=== PATIENT | female | born 1970 | race Caucasian/White ===

== ENCOUNTER 2021-05-23 11:03 | Inpatient (IN) | payer SELFPAY ==
[~2021-05-23] VITALS: Ht 163.8 cm; Wt 82.8 kg
[2021-05-23] MEDS ORDERED: PANTOPRAZOLE 80 MG in SODIUM CHLORIDE 0.9% 100 ML IV SCH (11:30)
[2021-05-23] MEDS ORDERED: OCTREOTIDE 100MCG/ML, 1ML (0.1MG/ML) IV ONE (11:30)
[2021-05-23] MEDS ORDERED: SODIUM CHLORIDE FLUSH 10ML SYR IVF ONE (11:30)
[2021-05-23] MEDS ORDERED: SODIUM CHLORIDE 0.9% 1,000 ML IV ONE (11:30)
[2021-05-23] MEDS ORDERED: OCTREOTIDE 500 MCG in SODIUM CHLORIDE 0.9% 99 ML IV PRN (11:30)
--- NOTE | 2021-05-23 11:30 | NUR ---
pt has c/o vomiting dark blood. was transfered from [facility] by [facility]. pt a/o x4 with unlabored breathing. PT HAS HX OF ETOH ABUSE AND HAS DENIED HX OF SZ. PT SHOWING NO SIGNS OF WITHDRAWL AT THIS TIME. PT LAST DINK [address] [facility] [place].
--- NOTE | 2021-05-23 11:31 | NUR ---
PT FRIEND STEFANO AND JOAQUIN PHONE # [phone]
[2021-05-23] MEDS ORDERED: LORazepam 2 MG/ML, 1ML IVPush PRN ×2 (12:00→15:30)
[2021-05-23] MEDS ORDERED: ONDANSETRON 2MG/ML, 2ML IVPush ONE (12:00)
[2021-05-23] MEDS ORDERED: OCTREOTIDE 100MCG/ML, 1ML (0.1MG/ML) ONE (12:08)
[2021-05-23] MEDS ORDERED: ONDANSETRON 2MG/ML, 2ML ONE (12:08)
[2021-05-23] MEDS ORDERED: LORazepam 2 MG/ML, 1ML ONE ×2 (12:09→14:58)
[2021-05-23 12:20] LABS: MEAN CORPUSCULAR HEMOGLOBIN 17.9 pg (27.0-34.8); MEAN PLATELET VOLUME 8.4 fL (7.4-10.4); PLATELET COUNT 286 x10^3/uL (130-400); RED BLOOD COUNT 4.52 x10^6/uL (3.82-5.3)
[2021-05-23 12:32] LABS: ALBUMIN 3.7 g/dL (3.4-5.0); ANION GAP 17 mmol/L (5-15); CALCIUM 9.1 mg/dL (8.5-10.1); CHLORIDE 102 mmol/L (98-107)
[2021-05-23 12:35] LABS: ALANINE AMINOTRANSFERASE 78 U/L (12-78); ALKALINE PHOSPHATASE 96 U/L (45-117); BILIRUBIN,TOTAL 1.4 mg/dL (0.2-1.0); CREATININE 0.92 mg/dL (0.55-1.02); TOTAL PROTEIN 8.4 g/dL (6.4-8.2)
[2021-05-23 12:51] LABS: MEAN CORPUSCULAR HGB CONC 28.7 g/dL (32.4-35.8)
[2021-05-23 12:53] LABS: LYMPH#(MANUAL) 0.32 x10^3/uL (1-3.4); LYMPHS% (MANUAL) 2 % (22-44); MONOS#(MANUAL) 0.49 x10^3/uL (0.3-2.7); MONOS% (MANUAL) 3 % (2-9); SEG#(MANUAL) 15.39 x10^3/uL (1.8-6.8); SEGS% (MANUAL) 95 % (42-75)
[2021-05-23 12:54] LABS: ANISOCYTOSIS 2+; HYPOCHROMIA 2+; MICROCYTOSIS 3+
[2021-05-23 12:57] LABS: <PLATELET ESTIMATE> ADEQUATE; <PLT MORPHOLOGY> NORMAL PLT MORPH; POLYCHROMASIA 1+
--- NOTE | 2021-05-23 14:00 | NUR ---
REPORT TO ENDO RN
[2021-05-23] MEDS ORDERED: CHLORHEXIDINE 15 ML UDC ONE (14:02)
--- NOTE | 2021-05-23 14:22 | NUR ---
ENDO TRANSPORTED PT TO THEIR UNIT
[2021-05-23] MEDS ORDERED: CHLORHEXIDINE 15 ML UDC PO ONE (14:30)
[2021-05-23] MEDS ORDERED: SODIUM CHLORIDE FLUSH 10ML SYR IVF PRN (14:30)
[2021-05-23] MEDS: PANTOPRAZOLE 80 MG in SODIUM CHLORIDE 0.9% 100 ML IV SCH ×2 (15:00→23:50)
[2021-05-23] MEDS ORDERED: ONDANSETRON 2MG/ML, 2ML IV PRN (15:00)
[2021-05-23] MEDS ORDERED: POLYETHYLENE GLYCOL 17 GM PACKET PO PRN (15:00)
[2021-05-23] MEDS ORDERED: GABAPENTIN 300 MG CAPSULE PO PRN (15:00)
[2021-05-23] MEDS ORDERED: BISACODYL 10 MG SUPP PR PRN (15:00)
[2021-05-23] MEDS ORDERED: DOCUSATE 100 MG CAPSULE PO PRN (15:00)
[2021-05-23] MEDS ORDERED: morphine SULFATE 10 MG/ML, 1ML IVPush PRN (15:00)
[2021-05-23] MEDS ORDERED: FENTANYL PF 100 MCG/2ML IV PRN (15:30)
[2021-05-23] MEDS ORDERED: LORazepam 2 MG/ML, 1ML IV PRN ×5 (15:30)
[2021-05-23 16:03] VITALS: BP 150/82
[2021-05-23] MEDS ORDERED: IRON DEXTRAN COMPLEX 25 MG in SODIUM CHLORIDE 0.9% 50 ML IV ONE (16:30)
[2021-05-23 16:56] VITALS: BP 150/82
[2021-05-23 16:57] LABS: INTERNATIONAL NORMALIZED RATIO 1.15 (0.93-1.1); PROTHROMBIN TIME 12.2 Seconds (9.6-11.5)
[2021-05-23] MEDS ORDERED: IRON DEXTRAN COMPLEX 1,350 MG in SODIUM CHLORIDE 0.9% 250 ML IV ONE (17:30)
[2021-05-23] MEDS: LORazepam 1MG TABLET PO SCH ×2 (17:48→22:06)
[2021-05-23] MEDS: MAGNESIUM CHLORIDE 64 MG TABLET.DR PO SCH ×2 (17:48→22:06)
[2021-05-23] MEDS ORDERED: EPINEPHRINE 1 MG/ML, 1ML SQ PRN (20:00)
[2021-05-23 20:37] VITALS: BP 108/70
[2021-05-23] MEDS: LACTATED RINGERS 1,000 ML IV SCH (22:31)
[2021-05-23] MEDS: OCTREOTIDE 500 MCG in SODIUM CHLORIDE 0.9% 99 ML IV SCH (23:49)
[2021-05-23] MEDS: MVI ADULT 10 ML, FOLIC ACID 1 MG, THIAMINE 100 MG, MAG SULFATE 4 MEQ, POTASSIUM CHLORID... IV SCH (23:51)
[2021-05-24] VITALS (13 sets, daily range): BP systolic 138–166; BP diastolic 83–109
[2021-05-24] MEDS ORDERED: No home medications (02:03)
[2021-05-24 02:21] LABS: MICROSCOPIC INDICATED
[2021-05-24 06:49] LABS: BASOPHILS % (AUTO) 1 % (0-1); EOSINOPHILS % (AUTO) 1 % (1-7); LYMPHOCYTES % (AUTO) 11 % (22-44); MEAN CORPUSCULAR HEMOGLOBIN 18.4 pg (27.0-34.8); MEAN PLATELET VOLUME 8.9 fL (7.4-10.4); MONOCYTES % (AUTO) 10 % (2-9); NEUTROPHILS % (AUTO) 78 % (42-75); PLATELET COUNT 227 x10^3/uL (130-400); RED CELL DISTRIBUTION WIDTH 23.4 % (9.6-15.2)
[2021-05-24 06:51] LABS: ANION GAP 8 mmol/L (5-15); CHLORIDE 102 mmol/L (98-107)
[2021-05-24 07:04] LABS: ALKALINE PHOSPHATASE 81 U/L (45-117); BILIRUBIN,TOTAL 0.9 mg/dL (0.2-1.0); CHOL/HDL RATIO 2.6; CHOLESTEROL, TOTAL 143 mg/dL (140-239); CREATININE 0.91 mg/dL (0.55-1.02); HDL CHOL % 39 % (28-40); HDL CHOLESTEROL (DIRECT) 56 mg/dL (40-60); LDL CHOLESTEROL,CALCULATED 72 mg/dL (54-169); LDL/HDL RATIO 1.3 (0.5-3.0); TOTAL PROTEIN 7.5 g/dL (6.4-8.2); TRIGLYCERIDES 77 mg/dL (50-200); VLDL CHOLESTEROL 15 mg/dL (0-25)
[2021-05-24 07:15] LABS: MEAN CORPUSCULAR HGB CONC 29.9 g/dL (32.4-35.8)
[2021-05-24 07:18] LABS: ALANINE AMINOTRANSFERASE 96 U/L (12-78)
[2021-05-24] MEDS: LORazepam 1MG TABLET PO SCH ×3 (08:54→21:11)
[2021-05-24] MEDS: MULTIVITAMINS/MINERALS TABLET PO SCH (08:54)
[2021-05-24] MEDS: MAGNESIUM CHLORIDE 64 MG TABLET.DR PO SCH ×3 (08:54→21:11)
[2021-05-24] MEDS ORDERED: SUCRALFATE 1 GM/10 ML UDC ONE (09:27)
[2021-05-24] MEDS ORDERED: MAGNESIUM HYDROXIDE 8%, 30ML UDC ONE (09:28)
[2021-05-24] MEDS: SUCRALFATE 1 GM/10 ML UDC PO SCH ×3 (09:32→21:11)
[2021-05-24] MEDS ORDERED: ALUMINUM/MAG/SIMETHICONE 30 ML UDC PO PRN (10:00)
[2021-05-24] MEDS ORDERED: PANTOPRAZOLE 40 MG IV IVPush SCH (10:00)
[2021-05-24] MEDS: LACTATED RINGERS 1,000 ML IV SCH ×2 (11:01→21:12)
[2021-05-24] MEDS: OCTREOTIDE 500 MCG in SODIUM CHLORIDE 0.9% 99 ML IV SCH (11:38)
[2021-05-24] MEDS ORDERED: LORazepam 0.5MG TABLET PO SCH (16:00)
[2021-05-24] MEDS ORDERED: MOVIPREP POWDER 1 PREP KIT PO ONE (16:30)
[2021-05-24] MEDS: HYDROcodone/APAP 5/325 TABLET PO PRN (18:35)
[2021-05-24] MEDS: DOCUSATE 100 MG CAPSULE PO SCH ×2 (20:00→21:00)
[2021-05-24] MEDS: POLYETHYLENE GLYCOL 17 GM PACKET PO SCH ×2 (20:00→21:00)
[2021-05-25] MEDS: MVI ADULT 10 ML, FOLIC ACID 1 MG, THIAMINE 100 MG, MAG SULFATE 4 MEQ, POTASSIUM CHLORID... IV SCH (00:11)
[2021-05-25 00:37] VITALS: BP 153/94
[2021-05-25 04:32] LABS: MEAN CORPUSCULAR HEMOGLOBIN 18.9 pg (27.0-34.8); MEAN CORPUSCULAR HGB CONC 30.2 g/dL (32.4-35.8); MEAN PLATELET VOLUME 8.4 fL (7.4-10.4); PLATELET COUNT 210 x10^3/uL (130-400); RED BLOOD COUNT 4.77 x10^6/uL (3.82-5.3); RED CELL DISTRIBUTION WIDTH 23.1 % (9.6-15.2)
[2021-05-25 04:40] LABS: ALBUMIN 2.9 g/dL (3.4-5.0); ANION GAP 6 mmol/L (5-15); CALCIUM 8.6 mg/dL (8.5-10.1); CHLORIDE 98 mmol/L (98-107)
[2021-05-25 04:45] LABS: ALKALINE PHOSPHATASE 81 U/L (45-117); BILIRUBIN,TOTAL 1.3 mg/dL (0.2-1.0); CREATININE 0.57 mg/dL (0.55-1.02); TOTAL PROTEIN 7.2 g/dL (6.4-8.2)
[2021-05-25 04:51] LABS: ALANINE AMINOTRANSFERASE 79 U/L (12-78)
[2021-05-25] MEDS: PANTOPRAZOLE 40MG TABLET PO SCH ×2 (05:29→16:05)
[2021-05-25 05:46] LABS: ANISOCYTOSIS 2+; BAND#(MANUAL) 0.26 x10^3/uL; BANDS%(MANUAL) 3 % (0-7); EOS#(MANUAL) 0.35 x10^3/uL (0.0-0.4); EOS% (MANUAL) 4 % (1-7); LYMPH#(MANUAL) 1.23 x10^3/uL (1-3.4); LYMPHS% (MANUAL) 14 % (22-44); METAMYELOCYTES# (MANUAL) 0.18 x10^3/uL (0-0); METAMYELOCYTES% (MANUAL) 2 % (0-1); MICROCYTOSIS 3+; MONOS#(MANUAL) 0.44 x10^3/uL (0.3-2.7); MONOS% (MANUAL) 5 % (2-9); SEG#(MANUAL) 6.34 x10^3/uL (1.8-6.8); SEGS% (MANUAL) 72 % (42-75)
[2021-05-25 05:47] LABS: HYPOCHROMIA 2+; OVALOCYTES 1+; POLYCHROMASIA 1+
[2021-05-25 05:48] LABS: <PLATELET ESTIMATE> ADEQUATE; <PLT MORPHOLOGY> NORMAL PLT MORPH
[2021-05-25 07:46] VITALS: BP 124/84
[2021-05-25] MEDS: MAGNESIUM CHLORIDE 64 MG TABLET.DR PO SCH ×3 (08:56→21:15)
[2021-05-25] MEDS: MULTIVITAMINS/MINERALS TABLET PO SCH (08:56)
[2021-05-25] MEDS: POLYETHYLENE GLYCOL 17 GM PACKET PO SCH ×2 (08:57→21:16)
[2021-05-25] MEDS: LACTATED RINGERS 1,000 ML IV SCH ×2 (08:57→18:00)
[2021-05-25] MEDS: LORazepam 1MG TABLET PO SCH ×4 (08:57→21:15)
[2021-05-25] MEDS: DOCUSATE 100 MG CAPSULE PO SCH ×2 (08:57→21:16)
[2021-05-25] MEDS: SUCRALFATE 1 GM/10 ML UDC PO SCH ×3 (08:57→21:15)
[2021-05-25] MEDS ORDERED: POTASSIUM PHOSPHATE 44 MEQ in SODIUM CHLORIDE 0.9% 500 ML IV ONE (10:00)
[2021-05-25] MEDS: HYDROcodone/APAP 5/325 TABLET PO PRN (11:59)
[2021-05-25 16:31] VITALS: BP 129/85
[2021-05-25 18:51] VITALS: BP 142/92
[2021-05-25] MEDS: MELATONIN 5 MG TABLET PO PRN (21:15)
[2021-05-26] MEDS: MVI ADULT 10 ML, FOLIC ACID 1 MG, THIAMINE 100 MG, MAG SULFATE 4 MEQ, POTASSIUM CHLORID... IV SCH (01:20)
[2021-05-26 01:38] VITALS: BP 125/75
[2021-05-26] MEDS: LACTATED RINGERS 1,000 ML IV SCH (05:16)
[2021-05-26] MEDS: PANTOPRAZOLE 40MG TABLET PO SCH ×2 (05:16→16:21)
[2021-05-26] MEDS: LORazepam 1MG TABLET PO SCH ×4 (05:16→20:47)
[2021-05-26 06:24] LABS: CHLORIDE 103 mmol/L (98-107)
[2021-05-26 06:36] LABS: ALANINE AMINOTRANSFERASE 59 U/L (12-78); ALBUMIN 2.8 g/dL (3.4-5.0); ALKALINE PHOSPHATASE 78 U/L (45-117); ANION GAP 5 mmol/L (5-15); BILIRUBIN,TOTAL 0.5 mg/dL (0.2-1.0); CALCIUM 9.2 mg/dL (8.5-10.1); CREATININE 0.57 mg/dL (0.55-1.02); TOTAL PROTEIN 6.9 g/dL (6.4-8.2)
[2021-05-26 06:42] LABS: BASOPHILS % (AUTO) 1 % (0-1); EOSINOPHILS % (AUTO) 5 % (1-7); LYMPHOCYTES % (AUTO) 16 % (22-44); MEAN CORPUSCULAR HGB CONC 30.1 g/dL (32.4-35.8); MEAN PLATELET VOLUME 8.4 fL (7.4-10.4); MONOCYTES % (AUTO) 14 % (2-9); NEUTROPHILS % (AUTO) 64 % (42-75); PLATELET COUNT 216 x10^3/uL (130-400); RED BLOOD COUNT 4.92 x10^6/uL (3.82-5.3); RED CELL DISTRIBUTION WIDTH 24.1 % (9.6-15.2)
[2021-05-26 08:42] VITALS: BP 126/82
[2021-05-26] MEDS: POLYETHYLENE GLYCOL 17 GM PACKET PO SCH ×2 (09:00→20:49)
[2021-05-26] MEDS: DOCUSATE 100 MG CAPSULE PO SCH ×2 (09:00→20:49)
[2021-05-26] MEDS: MAGNESIUM CHLORIDE 64 MG TABLET.DR PO SCH (10:35)
[2021-05-26] MEDS: MULTIVITAMINS/MINERALS TABLET PO SCH (10:35)
[2021-05-26] MEDS: SUCRALFATE 1 GM/10 ML UDC PO SCH ×3 (10:36→20:48)
[2021-05-26 12:57] VITALS: BP 128/79
[2021-05-26] MEDS: HYDROcodone/APAP 5/325 TABLET PO PRN ×2 (13:57→19:32)
[2021-05-26] MEDS: MELATONIN 5 MG TABLET PO PRN (20:49)
[2021-05-26 20:59] VITALS: BP 147/91
[2021-05-27 00:16] VITALS: BP 125/86
[2021-05-27] MEDS: LORazepam 1MG TABLET PO SCH ×3 (06:14→15:56)
[2021-05-27] MEDS: PANTOPRAZOLE 40MG TABLET PO SCH ×2 (06:15→15:56)
[2021-05-27 06:32] LABS: MEAN CORPUSCULAR HEMOGLOBIN 19.4 pg (27.0-34.8); MEAN CORPUSCULAR HGB CONC 30.6 g/dL (32.4-35.8); MEAN PLATELET VOLUME 8.5 fL (7.4-10.4); PLATELET COUNT 218 x10^3/uL (130-400); RED BLOOD COUNT 4.76 x10^6/uL (3.82-5.3); RED CELL DISTRIBUTION WIDTH 24.6 % (9.6-15.2)
[2021-05-27 06:56] LABS: ANION GAP 7 mmol/L (5-15); CHLORIDE 101 mmol/L (98-107)
[2021-05-27 06:59] VITALS: BP 133/82
[2021-05-27 07:12] LABS: EOS#(MANUAL) 0.53 x10^3/uL (0.0-0.4); EOS% (MANUAL) 6 % (1-7); LYMPH#(MANUAL) 1.85 x10^3/uL (1-3.4); LYMPHS% (MANUAL) 21 % (22-44); METAMYELOCYTES# (MANUAL) 0.09 x10^3/uL (0-0); METAMYELOCYTES% (MANUAL) 1 % (0-1); MONOS#(MANUAL) 0.97 x10^3/uL (0.3-2.7); MONOS% (MANUAL) 11 % (2-9); SEG#(MANUAL) 5.37 x10^3/uL (1.8-6.8); SEGS% (MANUAL) 61 % (42-75)
[2021-05-27 07:13] LABS: <PLATELET ESTIMATE> ADEQUATE; <PLT MORPHOLOGY> NORMAL PLT MORPH; ANISOCYTOSIS 2+; HYPOCHROMIA 2+; MICROCYTOSIS 2+; OVALOCYTES 1+; POLYCHROMASIA 1+; TARGET CELLS 1+; TEAR DROPS 1+
[2021-05-27] MEDS: MULTIVITAMINS/MINERALS TABLET PO SCH (07:27)
[2021-05-27] MEDS: POLYETHYLENE GLYCOL 17 GM PACKET PO SCH (07:28)
[2021-05-27] MEDS: DOCUSATE 100 MG CAPSULE PO SCH (07:28)
[2021-05-27] MEDS: HYDROcodone/APAP 5/325 TABLET PO PRN ×2 (07:28→13:53)
[2021-05-27] MEDS: SUCRALFATE 1 GM/10 ML UDC PO SCH ×2 (07:28→15:56)
[2021-05-27] MEDS ORDERED: VENLAFAXINE 37.5MG TABLET PO SCH (09:00)
[2021-05-27 12:12] VITALS: BP 110/63
[2021-05-27] MEDS ORDERED: VENL37.57 PO (12:53)
[2021-05-27] MEDS ORDERED: SUCR1ORA5 PO (12:53)
[2021-05-27] MEDS ORDERED: LORA-445 PO (12:53)
[2021-05-27] MEDS ORDERED: HYDR-2214 PO (12:53)
[2021-05-27] MEDS ORDERED: PANT40TA3 PO (12:56)
== END 2021-05-27 20:50 | disposition home or self-care (01) | DRG 368 ==
LOC: ED 13:17 → EDIP 14:59 → 4WST 15:57
PROVIDERS: ADMIT Internal Medicine; ATTEND Internal Medicine
PROC: 0DJ08ZZ Inspection of Upper Intestinal Tract, Via Natural or Artificial Opening Endoscopic (ICD-10-PCS; principal; 2021-05-23 17:30)
DX: K20.91 Esophagitis, unspecified with bleeding (principal); K22.6 Gastro-esophageal laceration-hemorrhage syndrome; D62 Acute posthemorrhagic anemia; E87.1 Hypo-osmolality and hyponatremia; F10.239 Alcohol dependence with withdrawal, unspecified; F33.2 Major depressive disorder, recurrent severe without psychotic features; K92.0 Hematemesis; F41.9 Anxiety disorder, unspecified; G89.29 Other chronic pain; I89.0 Lymphedema, not elsewhere classified; K44.9 Diaphragmatic hernia without obstruction or gangrene; K59.00 Constipation, unspecified; Z20.822 Contact with and (suspected) exposure to COVID-19; K22.70 Barrett's esophagus without dysplasia; K76.0 Fatty (change of) liver, not elsewhere classified; Z98.51 Tubal ligation status; Z85.038 Personal history of other malignant neoplasm of large intestine; Z81.8 Family history of other mental and behavioral disorders; Z80.3 Family history of malignant neoplasm of breast; Z80.0 Family history of malignant neoplasm of digestive organs; Z56.0 Unemployment, unspecified; Z87.19 Personal history of other diseases of the digestive system
CPT/HCPCS: 36415; 74018; 96374; 96375; 99285; J3475; 71045; 71046; 80048; 80053; 80061; 80320; 81001; 82728; 83036; 83540; 83550; 83605; 83735; 84100; 84443; 85014; 85018; 85025; 85610; 86850; 86900; 86923; 87086; G0378; J1750; J2354; J2405; J3411; J3480; C9113; G0480; J2060; J7030; J7040; J7050; J7120; P9016